=== PATIENT | female | born 1980 | race Caucasian/White ===

== ENCOUNTER 2016-11-30 22:38 | Emergency (ER) | payer OTHER ==
[2016-11-30 22:48] VITALS: TEMP 97.7
--- NOTE | 2016-11-30 22:57 | CPEKG ---
Heart Rate: 72 RR Interval: 833 P-R Interval: 188 QRSD Interval: 90 QT Interval: 436 QTC Interval: 478 P [place]: 70 QRS [place]: 103 T Wave [place]: 54 EKG Severity - BORDERLINE ECG - EKG Impression: SINUS RHYTHM EKG Impression: PROBABLE LEFT ATRIAL ABNORMALITY EKG Impression: BORDERLINE RIGHT AXIS DEVIATION EKG Impression: BORDERLINE PROLONGED QT INTERVAL Electronically Signed By: Larry Esparza 01-Dec-2016 01:35:07
[2016-11-30 23:06] LABS: % IMMATURE GRANULYOCYTES 0.6 % (0.0-1.1); ABSOLUTE IMMATURE GRANULOCYTES 0.11 10^3/uL (0.00-0.10); ADD DIFF? NO; ADD MORPH? NO; ADD SCAN? NO; ATYPICAL LYMPHOCYTE FLAG 0 (0-99); FRAGMENT RBC FLAG 0 (0-99); HEMATOCRIT 41.5 % (38.0-47.0); HEMOGLOBIN 14.6 g/dL (12.6-16.3); LEFT SHIFT FLG 10 (0-99); LIPEMIA HEMOLYSIS FLAG 90 (0-99); MEAN CELL HEMOGLOBIN CONCENTR. 35.2 g/dL (32.4-36.7); MEAN CELL VOLUME 88.1 fL (81.5-99.8); MEAN PLATELET VOLUME 9.1 fL (8.7-11.7); PLATELET CLUMPS FLAG 0 (0-99); PLATELET COUNT 237 10^3/uL (150-400); RED BLOOD CELL COUNT 4.71 10^6/uL (4.18-5.33); RED CELL DISTRIBUTION WIDTH 11.3 % (11.5-15.2)
[2016-11-30 23:13] LABS: ANION GAP 9 mEq/L (8-16); CALCIUM 9.2 mg/dL (8.5-10.4); CARBON DIOXIDE 18 mEq/l (22-31); CHLORIDE 107 mEq/L (97-110); CREATININE 0.9 mg/dL (0.6-1.0); GLOMERULAR FILTRATION RATE > 60; GLUCOSE 102 mg/dL (70-100); POTASSIUM 4.3 mEq/L (3.5-5.2); SODIUM 134 mEq/L (134-144)
[2016-11-30] MEDS ORDERED: ONDANSETRON 4 MG/2 ML VIAL ONE (23:23)
[2016-11-30 23:24] LABS: TROPONIN I 0.023 ng/mL (0-0.034)
[2016-11-30] MEDS ORDERED: ONDANSETRON 4 MG/2 ML VIAL IVP ONE (23:30)
[2016-11-30] MEDS ORDERED: NS 1,000 ML IV ONE (23:30)
[2016-11-30 23:38] LABS: CK-MB INTERPRETATION NEGATIVE (NEGATIVE)
--- NOTE | 2016-12-01 00:21 | EDPHY ---
H & P Stated Complaint: syncopal episode x2 after [employer] HPI/ROS: Chief Complaint: Syncope HPI: 36-year-old woman completed the arm and race tonight then had a syncopal episode. She was seen in the mid 10 given a L fluid. She is able to ambulate after that discharge from her care. Patient then had an additional syncopal episode. Is complaining of some leg cramping but otherwise without complaint. Some nausea and did have 1 episode of vomiting after her 2nd syncopal episode. No chest pain palpitations or shortness of breath. ROS: 10 point Review of Systems is negative except as noted in the HPI. PMH: None Medications: None Allergies: No known drug allergies Social History: No smoking, no alcohol, no recreational drug use Family History: non-contributory Physical Exam: Gen: Awake, Alert, No Distress HEENT: Nose: no rhinorrhea Eyes: PERRLA, EOMI Mouth: Moist mucosa Neck: Supple, no JVD Chest: nontender, lungs clear to auscultation Heart: S1, S2 normal, no murmur Abd: Soft, non-tender, no guarding Back: no CVA tenderness, no midline tenderness Ext: no edema, non-tender Skin: no rash Neuro: CN II-XII intact, Sensation grossly intact, Strength 5/5 in bilateral upper and lower extremities - Personal History LMP (Females 10-55): 1-7 Days Ago Current Tetanus/Diphtheria Vaccine: Yes Current Tetanus Diphtheria and Acellular Pertussis (TDAP): Yes Tetanus Vaccine Date: 2016 - Medical/Surgical History Hx Asthma: No Hx Chronic Respiratory Disease: No Hx Diabetes: No Hx Cardiac Disease: No Hx Renal Disease: No Hx Cirrhosis: No Hx Alcoholism: No Hx HIV/AIDS: No Hx Splenectomy or Spleen Trauma: No Other PMH: denies - Social History Smoking Status: Never smoked Constitutional: Initial Vital Signs Temperature (C) 36.5 C 11/30/16 22:47 Heart Rate 72 11/30/16 22:47 Respiratory Rate 16 11/30/16 22:47 Blood Pressure 107/65 11/30/16 22:47 O2 Sat (%) 100 11/30/16 22:47 O2 Delivery Mode Room Air Allergies/Adverse Reactions: No Known Allergies Allergy (Unverified 11/30/16 22:48) Home Medications: Medication Instructions Recorded Bcp 11/30/16 Medical Decision Making ED Course/Re-evaluation: Patient is improved after IV hydration and antiemetics. Orthostatics vital signs are normal. She is tolerating p. o.. She has had no vomiting. Electrolytes are normal. She does have a bump in her CPK but is not dramatic. Will discharge with instructions follow up with primary care physician. Continue oral hydration with electrolyte solution. Return for worsening. - Data Points Laboratory Results: Laboratory Results 11/30/16 22:45 11/30/16 22:45 11/30/16 11/30/16 22:45 22:45 WBC 19.32 10^3/uL H 10^3/uL (3.80-9.50) RBC 4.71 10^6/uL 10^6/uL (4.18-5.33) Hgb 14.6 g/dL g/dL (12.6-16.3) Hct 41.5 % % (38.0-47.0) MCV 88.1 fL fL (81.5-99.8) MCH 31.0 pg pg (27.9-34.1) MCHC 35.2 g/dL g/dL (32.4-36.7) RDW 11.3 % L % (11.5-15.2) Plt Count 237 10^3/uL 10^3/uL (150-400) MPV 9.1 fL fL (8.7-11.7) Neut % (Auto) 82.8 % H % (39.3-74.2) Lymph % (Auto) 9.9 % L % (15.0-45.0) [place] % (Auto) 6.4 % % (4.5-13.0) Eos % (Auto) 0.0 % L % (0.6-7.6) Baso % (Auto) 0.3 % % (0.3-1.7) Nucleat RBC Rel Count 0.0 % % (0.0-0.2) Absolute Neuts (auto) 15.99 10^3/uL H 10^3/uL (1.70-6.50) Absolute Lymphs (auto) 1.92 10^3/uL 10^3/uL (1.00-3.00) Absolute Monos (auto) 1.24 10^3/uL H 10^3/uL (0.30-0.80) Absolute Eos (auto) 0.00 10^3/uL L 10^3/uL (0.03-0.40) Absolute Basos (auto) 0.06 10^3/uL 10^3/uL (0.02-0.10) Absolute Nucleated RBC 0.00 10^3/uL 10^3/uL (0-0.01) Immature Gran % 0.6 % % (0.0-1.1) Immature Gran # 0.11 10^3/uL H 10^3/uL (0.00-0.10) Sodium 134 mEq/L mEq/L (134-144) Potassium 4.3 mEq/L mEq/L (3.5-5.2) Chloride 107 mEq/L mEq/L (97-110) Carbon Dioxide 18 mEq/l L mEq/l (22-31) Anion Gap 9 mEq/L mEq/L (8-16) BUN 15 mg/dL mg/dL (7-23) Creatinine 0.9 mg/dL mg/dL (0.6-1.0) Estimated GFR > 60 Glucose 102 mg/dL H mg/dL (70-100) Calcium 9.2 mg/dL mg/dL (8.5-10.4) Creatine Kinase 1069 IU/L H IU/L (0-156) CK-MB (CK-2) Fraction 16.30 ng/mL H ng/mL (0-4.55) CK-MB (CK-2) % 1.5 % % (0.0-4.0) Creatine Kinase Interp NEGATIVE (NEGATIVE) Troponin I 0.023 ng/mL ng/mL (0-0.034) Medications Given: Discontinued Medications Acetaminophen (Tylenol) 1,000 mg PO EDNOW ONE Stop: 12/01/16 00:27 Last Admin: 12/01/16 00:28 Dose: 1,000 mg Sodium Chloride (Ns) 1,000 mls @ 0 mls/hr IV ONCE ONE PRN Reason: Wide Open Stop: 11/30/16 23:31 Last Admin: 11/30/16 23:31 Dose: 1,000 mls Ondansetron HCl (Zofran) 4 mg IVP EDNOW ONE Stop: 11/30/16 23:31 Last Admin: 11/30/16 23:31 Dose: 4 mg Departure - Departure Disposition: Home, Routine, Self-Care Clinical Impression: Rhabdomyolysis, Dehydration, Syncope Condition: Good Instructions: Dehydration (ED), Syncope (ED), Rhabdomyolysis (ED) Additional Instructions: He may take acetaminophen as needed for aches and pains. Please avoid ibuprofen for the next 48 hours. Drink plenty of fluids containing electrolytes such as Pedialyte or Gatorade. Follow up with primary care physician in 2-3 days if you're not feeling improved. Return to the emergency depart for worsening symptoms, nausea, vomiting, prefer diffuse persistent diarrhea, chest pain, shortness of breath, fainting, or any other concerns. Referrals: [facility] [Other] - As per Instructions
[2016-12-01] MEDS ORDERED: ACETAMINOPHEN 500 MG TAB ONE (00:24)
[2016-12-01] MEDS ORDERED: ACETAMINOPHEN 500 MG TAB PO ONE (00:26)
[2016-12-01 01:31] VITALS: BP 107/69; PULSE 79; RESP 18; O2SAT 98
== END 2016-12-01 01:29 | disposition home or self-care (01) ==
LOC: EDBD 22:38
DX: R55 Syncope and collapse (principal); E86.0 Dehydration; M62.82 Rhabdomyolysis
CPT/HCPCS: 96374; J2405